=== PATIENT | male | born 1955 | race African-American/Black ===

== ENCOUNTER 2020-09-11 10:20 | Inpatient (IN) | payer MEDICARE, MEDICAID ==
[~2020-09-11] VITALS: Ht 165.1 cm; Wt 71.2 kg
[2020-09-11] MEDS ORDERED: SODIUM CHLORIDE 0.9% 1,000 ML IV ONE ×2 (10:45→12:15)
[2020-09-11 10:56] LABS: BASOPHILS % 0.6 % (0.0-2.0); EOSINOPHILS % 0.5 % (0.0-5.0); HEMATOCRIT. 39.1 % (42.0-52.0); HEMOGLOBIN. 12.9 g/dL (14.0-18.0); LYMPHOCYTES % 9.8 % (20.0-50.0); MEAN CORPUSCULAR HEMOGLOBIN 25.7 pg (28.0-32.0); MEAN CORPUSCULAR VOLUME 77.8 fL (80.0-94.0); MEAN PLATELET VOLUME 8.2 fl (7.4-10.4); MONOCYTES % 13.3 % (2.0-8.0); NEUTROPHILS % 75.8 % (40.0-76.0); PLATELET 349 x1000/uL (130-400); RED BLOOD CELL COUNT 5.02 mill/uL (4.7-6.1); RED CELL DISTRIBUTION WIDTH 13.7 % (11.6-14.6)
[2020-09-11 10:58] LABS: CLARITY URINE CLEAR (CLEAR); COLOR URINE YELLOW (YELLOW); KETONES URINE 1+ (NEGATIVE); LEUKOCYTE ESTERASE URINE NEGATIVE (NEGATIVE); NITRITE URINE NEGATIVE (NEGATIVE); OCCULT BLOOD URINE TRACE (NEGATIVE); PROTEIN URINE 1+ (NEGATIVE); SPECIFIC GRAVITY URINE 1.036 (1.005-1.030); UROBILINOGEN URINE 0.2 E.U./dL (0.2-1.0)
[2020-09-11 11:02] LABS: CHLORIDE 95 mEq/L (98-107)
[2020-09-11 11:06] LABS: ETHANOL BLOOD < 10 mg/dL; PROTHROMBIN TIME 10.7 sec (9.6-11.0)
[2020-09-11 11:25] LABS: *AMPHETAMINES SCREEN URINE NEGATIVE (NEGATIVE); *BARBITURATES SCREEN URINE NEGATIVE (NEGATIVE); *BENZODIAZEPINES SCREEN URINE NEGATIVE (NEGATIVE); OPIATES URINE SCREEN NEGATIVE (NEGATIVE)
[2020-09-11 11:27] LABS: *COCAINE SCREEN URINE NEGATIVE (NEGATIVE); CANNABINOID URINE SCREEN NEGATIVE (NEGATIVE); METHADONE URINE SCREEN NEGATIVE (NEGATIVE); PHENCYCLIDINE URINE SCREEN NEGATIVE (NEGATIVE)
[2020-09-11] MEDS ORDERED: INSULIN GLARGINE UD 100 UNITS/ML SYR SUBCUT SCH (13:00)
[2020-09-11] MEDS ORDERED: ONDANSETRON HCL 4MG/2ML INJ IV PRN (13:15)
[2020-09-11] MEDS ORDERED: IPRATROPIUM/ALBUTEROL 0.5-3(2.5)MG/3ML NEB HHN PRN (13:15)
[2020-09-11] MEDS ORDERED: CLONIDINE 0.1MG TABLET PO PRN (13:15)
[2020-09-11] MEDS ORDERED: ACETAMINOPHEN 325MG TABLET PO PRN (13:15)
[2020-09-11] MEDS ORDERED: DIPHENHYDRAMINE 50MG/ML VIAL IV PRN (13:15)
[2020-09-11] MEDS ORDERED: INSULIN REGULAR (HUMULIN R) 300UNITS/3ML VIAL SUBCUT ONE (14:45)
[2020-09-11 16:00] VITALS: BP 172/97
[2020-09-11 16:15] VITALS: BP 172/97
[2020-09-11] MEDS ORDERED: LISI20TA31 MT (17:38)
[2020-09-11] MEDS ORDERED: HYDR-4135 MT (17:38)
[2020-09-11] MEDS ORDERED: METF-414 MT (17:38)
[2020-09-11] MEDS ORDERED: MULT1TAB63 MT (17:38)
[2020-09-11] MEDS ORDERED: DEXTROSE 50% WATER 50ML SYRINGE IV PRN (18:15)
[2020-09-11] MEDS ORDERED: INFLUENZA VACCINE 05/PF 0.5 ML VIAL IM ONE (18:15)
[2020-09-11 20:00] VITALS: BP 137/66
[2020-09-11] MEDS: BLOOD SUGAR DIAGNOSTIC STRIP TEST SCH (21:06)
[2020-09-11] MEDS: INSULIN LISPRO 100 UNITS/ML SUBCUT SCH (21:06)
[2020-09-12] VITALS: BP 134/87
[2020-09-12] MEDS: INSULIN GLARGINE UD 100 UNITS/ML SYR SUBCUT SCH ×3 (00:49→23:46)
[2020-09-12 04:00] VITALS: BP 158/80
[2020-09-12] MEDS: BLOOD SUGAR DIAGNOSTIC STRIP TEST SCH ×4 (06:20→21:25)
[2020-09-12 06:53] LABS: HEMATOCRIT. 34.5 % (42.0-52.0); HEMOGLOBIN. 11.2 g/dL (14.0-18.0); MEAN CORPUSCULAR HEMOGLOBIN 25.1 pg (28.0-32.0); MEAN CORPUSCULAR VOLUME 77.4 fL (80.0-94.0); MEAN PLATELET VOLUME 8.7 fl (7.4-10.4); PLATELET 321 x1000/uL (130-400); RED BLOOD CELL COUNT 4.46 mill/uL (4.7-6.1); RED CELL DISTRIBUTION WIDTH 13.2 % (11.6-14.6)
[2020-09-12 07:52] LABS: CHLORIDE 101 mEq/L (98-107)
[2020-09-12 08:02] LABS: HDL CHOLESTEROL 53 mg/dL (40-59)
[2020-09-12 08:03] LABS: LDL CHOLESTEROL 140 mg/dL (5-100)
[2020-09-12] MEDS: INSULIN LISPRO 100 UNITS/ML SUBCUT SCH ×4 (08:11→21:28)
[2020-09-12] MEDS ORDERED: INFLUENZA VACCINE 05/PF 0.5 ML VIAL IM ONE (09:00)
[2020-09-12 12:00] VITALS: BP 145/68
[2020-09-12] MEDS ORDERED: POTASSIUM CHLORIDE 20MEQ TABLET SR PO SCH (12:00)
[2020-09-12 14:13] LABS: PLATELET ESTIMATE NORMAL
[2020-09-12 16:00] VITALS: BP 148/90
[2020-09-12] MEDS: CLOPIDOGREL 75MG TABLET PO SCH (17:11)
[2020-09-12 20:00] VITALS: BP 130/66
[2020-09-13] VITALS: BP 158/83
[2020-09-13 04:00] VITALS: BP 129/78
[2020-09-13 05:33] LABS: BASOPHILS % 0.6 % (0.0-2.0); EOSINOPHILS % 2.2 % (0.0-5.0); HEMATOCRIT. 33.4 % (42.0-52.0); HEMOGLOBIN. 10.8 g/dL (14.0-18.0); LYMPHOCYTES % 22.3 % (20.0-50.0); MEAN CORPUSCULAR HEMOGLOBIN 25.2 pg (28.0-32.0); MEAN CORPUSCULAR VOLUME 77.8 fL (80.0-94.0); MEAN PLATELET VOLUME 8.3 fl (7.4-10.4); MONOCYTES % 13.4 % (2.0-8.0); NEUTROPHILS % 61.5 % (40.0-76.0); PLATELET 325 x1000/uL (130-400); RED BLOOD CELL COUNT 4.29 mill/uL (4.7-6.1); RED CELL DISTRIBUTION WIDTH 13.2 % (11.6-14.6)
[2020-09-13] MEDS: BLOOD SUGAR DIAGNOSTIC STRIP TEST SCH ×4 (06:42→21:20)
[2020-09-13 07:07] LABS: CHLORIDE 100 mEq/L (98-107)
[2020-09-13 07:30] LABS: LDL CHOLESTEROL 131 mg/dL (5-100)
[2020-09-13 07:31] LABS: HDL CHOLESTEROL 49 mg/dL (40-59); T4 FREE 1.11 ng/dL (0.76-1.46)
[2020-09-13] MEDS: INSULIN LISPRO 100 UNITS/ML SUBCUT SCH ×4 (07:50→21:00)
[2020-09-13 08:00] VITALS: BP 145/81
[2020-09-13] MEDS: CLOPIDOGREL 75MG TABLET PO SCH (08:19)
[2020-09-13] MEDS: INSULIN GLARGINE UD 100 UNITS/ML SYR SUBCUT SCH ×2 (10:59→21:26)
[2020-09-13 12:00] VITALS: BP 155/85
[2020-09-13 16:00] VITALS: BP 125/94
[2020-09-13] MEDS ORDERED: POTASSIUM CHLORIDE 20MEQ TABLET SR PO SCH (17:00)
[2020-09-13 17:04] LABS: VITAMIN B12 SERUM 635 pg/mL (211-911)
[2020-09-13 17:07] LABS: FOLIC ACID (FOLATE) SERUM > 20.00 ng/mL (>5.38)
[2020-09-13] MEDS: SODIUM CHLORIDE 0.9% 1,000 ML IV SCH (17:28)
[2020-09-13 20:00] VITALS: BP 128/71
[2020-09-14] VITALS: BP 147/79
[2020-09-14 04:00] VITALS: BP 129/81
[2020-09-14] MEDS: SODIUM CHLORIDE 0.9% 1,000 ML IV SCH (05:34)
[2020-09-14] MEDS: BLOOD SUGAR DIAGNOSTIC STRIP TEST SCH ×3 (06:30→18:10)
[2020-09-14] MEDS: INSULIN LISPRO 100 UNITS/ML SUBCUT SCH ×4 (07:50→20:03)
[2020-09-14 08:00] VITALS: BP 168/93
[2020-09-14 08:11] LABS: CHLORIDE 102 mEq/L (98-107)
[2020-09-14 08:18] LABS: HEMATOCRIT. 35.7 % (42.0-52.0); HEMOGLOBIN. 11.8 g/dL (14.0-18.0); MEAN CORPUSCULAR HEMOGLOBIN 25.6 pg (28.0-32.0); MEAN CORPUSCULAR VOLUME 77.8 fL (80.0-94.0); PLATELET 343 x1000/uL (130-400); RED CELL DISTRIBUTION WIDTH 13.3 % (11.6-14.6)
[2020-09-14] MEDS: INSULIN GLARGINE UD 100 UNITS/ML SYR SUBCUT SCH (10:00)
[2020-09-14] MEDS: CLOPIDOGREL 75MG TABLET PO SCH (10:02)
[2020-09-14 11:53] VITALS: BP 148/80
[2020-09-14] MEDS ORDERED: BARIUM SULFATE 176 GM SUSP.RECON ONE (12:58)
[2020-09-14 15:54] VITALS: BP 139/71
[2020-09-14 21:40] LABS: PLATELET ESTIMATE NORMAL
== END 2020-09-14 19:50 | DRG 64 ==
LOC: ER 10:32 → 6EST 12:30 → EDBEDREQ 12:50 → EDBEDREQSVC 12:50 → ENRESERV 14:05
PROVIDERS: ADMIT Internal Medicine; ATTEND Internal Medicine
PROC: 0HBRXZZ Excision of Toe Nail, External Approach (ICD-10-PCS; principal; 2020-09-14)
PROC: 0HBRXZZ Excision of Toe Nail, External Approach (ICD-10-PCS; 2020-09-14)
PROC: 0HBRXZZ Excision of Toe Nail, External Approach (ICD-10-PCS; 2020-09-14)
PROC: 0HBRXZZ Excision of Toe Nail, External Approach (ICD-10-PCS; 2020-09-14)
PROC: 0HBRXZZ Excision of Toe Nail, External Approach (ICD-10-PCS; 2020-09-14)
PROC: 0HBRXZZ Excision of Toe Nail, External Approach (ICD-10-PCS; 2020-09-14)
PROC: 0HBRXZZ Excision of Toe Nail, External Approach (ICD-10-PCS; 2020-09-14)
PROC: 0HBRXZZ Excision of Toe Nail, External Approach (ICD-10-PCS; 2020-09-14)
PROC: 0HBRXZZ Excision of Toe Nail, External Approach (ICD-10-PCS; 2020-09-14)
PROC: 0HBRXZZ Excision of Toe Nail, External Approach (ICD-10-PCS; 2020-09-14)
DX: I63.81 Other cerebral infarction due to occlusion or stenosis of small artery (principal); G82.50 Quadriplegia, unspecified; E11.65 Type 2 diabetes mellitus with hyperglycemia; F03.90 Unspecified dementia, unspecified severity, without behavioral disturbance, psychotic disturbance, mood disturbance, and anxiety; I10 Essential (primary) hypertension; I25.10 Atherosclerotic heart disease of native coronary artery without angina pectoris; F17.210 Nicotine dependence, cigarettes, uncomplicated; E11.621 Type 2 diabetes mellitus with foot ulcer; E78.00 Pure hypercholesterolemia, unspecified; L60.2 Onychogryphosis; L85.3 Xerosis cutis; R53.81 Other malaise; L97.519 Non-pressure chronic ulcer of other part of right foot with unspecified severity; Z20.822 Contact with and (suspected) exposure to COVID-19; R13.10 Dysphagia, unspecified; E11.51 Type 2 diabetes mellitus with diabetic peripheral angiopathy without gangrene; R47.01 Aphasia; R26.9 Unspecified abnormalities of gait and mobility; I25.2 Old myocardial infarction; Z95.1 Presence of aortocoronary bypass graft; Z71.6 Tobacco abuse counseling; Z72.89 Other problems related to lifestyle
CPT/HCPCS: 36415; 70544; 70551; 71045; 74230; 80048; 80053; 80061; 80305; 80320; 81003; 82140; 82306; 82607; 82746; 82962; 83036; 84439; 84443; 84481; 84484; 85025; 87426; 90686; 92523; 92610; 92611; 93005; 93306; 93880; 93923; 93970; 97162; 97166; 97530; 97535; 99285; J1815; J7030; G0480

== ENCOUNTER 2020-10-03 10:43 | Inpatient (IN) | payer MEDICARE, MEDICAID ==
[~2020-10-03] VITALS: Ht 182.9 cm; Wt 64.4 kg
[~2020-10-03 10:43] MED LIST: AMLO10TA80 PO; ASCO500T20 PO; CLOP75TA15 PO; DOCU-150 PO; HYDR-4135 MT; HYDR-4135 PO; LANTUSUD SUBCUT; LISI20TA31 MT; METF-414 MT; MULT1TAB63 MT; TIZA-191 PO
[2020-10-03 12:00] LABS: BASOPHILS % 0.8 % (0.0-2.0); EOSINOPHILS % 1.4 % (0.0-5.0); HEMATOCRIT. 28.9 % (42.0-52.0); HEMOGLOBIN. 9.8 g/dL (14.0-18.0); LYMPHOCYTES % 14.1 % (20.0-50.0); MEAN CORPUSCULAR HEMOGLOBIN 25.4 pg (28.0-32.0); MEAN CORPUSCULAR VOLUME 74.9 fL (80.0-94.0); MEAN PLATELET VOLUME 6.7 fl (7.4-10.4); MONOCYTES % 13.2 % (2.0-8.0); NEUTROPHILS % 70.5 % (40.0-76.0); PLATELET 610 x1000/uL (130-400); RED BLOOD CELL COUNT 3.86 mill/uL (4.7-6.1); RED CELL DISTRIBUTION WIDTH 13.4 % (11.6-14.6)
[2020-10-03] MEDS ORDERED: SODIUM CHLORIDE 0.9% 1,000 ML IV SCH (12:00)
[2020-10-03 12:07] LABS: PARTIAL THROMBOPLASTIN TIME 26.9 sec (23.4-31.0)
[2020-10-03 12:10] LABS: CHLORIDE 102 mEq/L (98-107)
[2020-10-03] MEDS ORDERED: GENTAMICIN SULF 40MG/ML 2ML VIAL ONE (12:22)
[2020-10-03] MEDS ORDERED: BACITRACIN 15GM TUBE TOP ONE (12:22)
[2020-10-03] MEDS ORDERED: LIDOCAINE HCL 1% 20ML VIAL (Pyxis) INJ ONE (12:23)
[2020-10-03] MEDS ORDERED: SODIUM CHLORIDE 0.9% INJ 10ML FLUSH IVF ONE (12:23)
[2020-10-03] MEDS ORDERED: HEPARIN SODIUM 1,000 UNIT/1ML VIAL IV ONE (12:23)
[2020-10-03] MEDS ORDERED: THROMBIN (BOVINE) 5000 UNITS/VIAL TOP ONE (12:23)
[2020-10-03] MEDS ORDERED: BUPIVACAINE HCL/PF 0.5% (5MG/ML) 10ML ONE (12:23)
[2020-10-03] MEDS ORDERED: SODIUM CHLORIDE 0.9% 250 ML IV ONE (12:24)
[2020-10-03] MEDS ORDERED: HYDROCODONE/ACETAMINOPHEN 5/325MG TABLET PO PRN (13:30)
[2020-10-03] MEDS ORDERED: MORPHINE SULFATE 4 MG/ML CPJ (NOT FOR IM USE) IV PRN (13:30)
[2020-10-03] MEDS ORDERED: HYDROMORPHONE HCL/PF 2MG/ML (OR) ONE (13:46)
[2020-10-03] MEDS ORDERED: VASOPRESSIN 20 UNIT/ML 1ML ONE (13:54)
[2020-10-03] MEDS ORDERED: DEXAMETHASONE 4MG/ML 1ML VIAL ONE (13:54)
[2020-10-03] MEDS ORDERED: CEFAZOLIN SODIUM 1000MG/VIAL ONE (13:58)
[2020-10-03] MEDS ORDERED: CHOL500051 PO (14:06)
[2020-10-03] MEDS ORDERED: ALBUMIN HUMAN 12.5GM/50ML (25%) IV ONE (14:33)
[2020-10-03] MEDS ORDERED: MEPERIDINE HCL/PF 25MG/ML CPJ IV PRN (15:00)
[2020-10-03] MEDS ORDERED: LABETALOL 5MG/ML SYR 20 MG/4 ML SYRINGE IV PRN (15:00)
[2020-10-03] MEDS ORDERED: ONDANSETRON HCL 4MG/2ML INJ IV PRN (15:00)
[2020-10-03] MEDS ORDERED: HYDROMORPHONE HCL/PF 2MG/ML CPJ IV PRN (15:00)
[2020-10-03 20:00] VITALS: BP_SYST 129; BP_SYST 149; BP_DIAS 67; BP_DIAS 76
[2020-10-03] MEDS: HYDRALAZINE HCL 50MG TABLET PO SCH (21:00)
[2020-10-04 04:00] VITALS: BP 112/66
[2020-10-04 08:00] VITALS: BP 119/62
[2020-10-04] MEDS: HYDRALAZINE HCL 50MG TABLET PO SCH ×2 (09:57→21:45)
[2020-10-04 12:00] VITALS: BP 97/47
[2020-10-04 16:00] VITALS: BP 114/60
[2020-10-04 20:00] VITALS: BP 117/61
[2020-10-04] MEDS ORDERED: DEXTROSE 50% WATER 50ML SYRINGE IV PRN (22:15)
[2020-10-05] VITALS: BP 127/61
[2020-10-05] MEDS: BLOOD SUGAR DIAGNOSTIC STRIP TEST SCH ×4 (06:38→21:26)
[2020-10-05] MEDS: INSULIN LISPRO 100 UNITS/ML SUBCUT SCH ×4 (07:50→21:29)
[2020-10-05 07:56] VITALS: BP 118/58
[2020-10-05] MEDS: HYDRALAZINE HCL 50MG TABLET PO SCH ×2 (09:03→21:00)
[2020-10-05 11:12] VITALS: BP 114/64
[2020-10-05 15:43] VITALS: BP 124/66
[2020-10-05 20:00] VITALS: BP 102/74
[2020-10-06] VITALS (7 sets, daily range): BP systolic 122–134; BP diastolic 67–93
[2020-10-06 06:25] LABS: CHLORIDE 97 mEq/L (98-107)
[2020-10-06 06:39] LABS: BASOPHILS % 0.6 % (0.0-2.0); EOSINOPHILS % 2.8 % (0.0-5.0); HEMATOCRIT. 27.6 % (42.0-52.0); HEMOGLOBIN. 9.2 g/dL (14.0-18.0); LYMPHOCYTES % 16.2 % (20.0-50.0); MEAN CORPUSCULAR HEMOGLOBIN 24.8 pg (28.0-32.0); MEAN CORPUSCULAR VOLUME 74.4 fL (80.0-94.0); MEAN PLATELET VOLUME 7.1 fl (7.4-10.4); MONOCYTES % 14.2 % (2.0-8.0); NEUTROPHILS % 66.2 % (40.0-76.0); PLATELET 563 x1000/uL (130-400); RED CELL DISTRIBUTION WIDTH 13.5 % (11.6-14.6)
[2020-10-06] MEDS: BLOOD SUGAR DIAGNOSTIC STRIP TEST SCH ×4 (06:58→20:44)
[2020-10-06] MEDS: INSULIN LISPRO 100 UNITS/ML SUBCUT SCH ×4 (08:54→20:44)
[2020-10-06] MEDS: HYDRALAZINE HCL 50MG TABLET PO SCH ×2 (08:58→20:44)
[2020-10-07] VITALS (8 sets, daily range): BP systolic 106–140; BP diastolic 68–80
[2020-10-07] MEDS: BLOOD SUGAR DIAGNOSTIC STRIP TEST SCH ×4 (06:22→20:21)
[2020-10-07] MEDS: HYDRALAZINE HCL 50MG TABLET PO SCH ×2 (09:39→20:41)
[2020-10-07] MEDS: INSULIN LISPRO 100 UNITS/ML SUBCUT SCH ×4 (09:40→20:42)
[2020-10-08 00:30] VITALS: BP_SYST 127; BP_SYST 129; BP_DIAS 101; BP_DIAS 75
[2020-10-08 04:30] VITALS: BP 133/72
[2020-10-08 05:48] LABS: CHLORIDE 98 mEq/L (98-107)
[2020-10-08] MEDS: BLOOD SUGAR DIAGNOSTIC STRIP TEST SCH ×4 (06:50→21:01)
[2020-10-08 06:56] LABS: BASOPHILS % 0.9 % (0.0-2.0); EOSINOPHILS % 3.8 % (0.0-5.0); HEMATOCRIT. 28.7 % (42.0-52.0); HEMOGLOBIN. 9.4 g/dL (14.0-18.0); LYMPHOCYTES % 18.7 % (20.0-50.0); MEAN CORPUSCULAR HEMOGLOBIN 24.2 pg (28.0-32.0); MEAN CORPUSCULAR VOLUME 74.1 fL (80.0-94.0); MEAN PLATELET VOLUME 7.4 fl (7.4-10.4); MONOCYTES % 14.2 % (2.0-8.0); NEUTROPHILS % 62.4 % (40.0-76.0); PLATELET 660 x1000/uL (130-400); RED BLOOD CELL COUNT 3.87 mill/uL (4.7-6.1); RED CELL DISTRIBUTION WIDTH 13.8 % (11.6-14.6)
[2020-10-08 08:06] VITALS: BP 125/76
[2020-10-08] MEDS: HYDRALAZINE HCL 50MG TABLET PO SCH ×2 (11:11→21:01)
[2020-10-08 12:33] VITALS: BP 119/71
[2020-10-08] MEDS: INSULIN LISPRO 100 UNITS/ML SUBCUT SCH ×3 (13:21→21:01)
[2020-10-08 16:22] VITALS: BP 139/68
[2020-10-08 20:30] VITALS: BP 142/75
[2020-10-09 00:08] VITALS: BP 123/64
[2020-10-09 04:05] VITALS: BP 123/66
[2020-10-09] MEDS: BLOOD SUGAR DIAGNOSTIC STRIP TEST SCH ×4 (06:30→21:00)
[2020-10-09 07:56] LABS: CHLORIDE 98 mEq/L (98-107); HEMATOCRIT. 27.9 % (42.0-52.0); HEMOGLOBIN. 9.5 g/dL (14.0-18.0); MEAN CORPUSCULAR HEMOGLOBIN 25.2 pg (28.0-32.0); MEAN CORPUSCULAR VOLUME 73.9 fL (80.0-94.0); MEAN PLATELET VOLUME 7.3 fl (7.4-10.4); PLATELET 611 x1000/uL (130-400); RED BLOOD CELL COUNT 3.77 mill/uL (4.7-6.1); RED CELL DISTRIBUTION WIDTH 13.5 % (11.6-14.6)
[2020-10-09 08:00] VITALS: BP 140/74
[2020-10-09] MEDS: HYDRALAZINE HCL 50MG TABLET PO SCH ×2 (08:15→21:16)
[2020-10-09] MEDS: INSULIN LISPRO 100 UNITS/ML SUBCUT SCH ×4 (08:16→21:18)
[2020-10-09 11:57] VITALS: BP 158/76
[2020-10-09 16:29] VITALS: BP 129/73
[2020-10-09 17:23] LABS: PLATELET ESTIMATE INCREASED
[2020-10-09 20:00] VITALS: BP 145/63
[2020-10-10] VITALS: BP 149/83
[2020-10-10 04:00] VITALS: BP 127/66
[2020-10-10] MEDS: BLOOD SUGAR DIAGNOSTIC STRIP TEST SCH ×4 (06:23→21:14)
[2020-10-10 06:43] LABS: BASOPHILS % 0.9 % (0.0-2.0); EOSINOPHILS % 1.8 % (0.0-5.0); HEMOGLOBIN. 9.8 g/dL (14.0-18.0); LYMPHOCYTES % 18.7 % (20.0-50.0); MEAN CORPUSCULAR VOLUME 73.4 fL (80.0-94.0); MEAN PLATELET VOLUME 7.4 fl (7.4-10.4); MONOCYTES % 12.9 % (2.0-8.0); NEUTROPHILS % 65.7 % (40.0-76.0); PLATELET 723 x1000/uL (130-400); RED BLOOD CELL COUNT 4.09 mill/uL (4.7-6.1); RED CELL DISTRIBUTION WIDTH 13.6 % (11.6-14.6)
[2020-10-10 07:28] LABS: CHLORIDE 96 mEq/L (98-107)
[2020-10-10 08:00] VITALS: BP 151/78
[2020-10-10] MEDS: HYDRALAZINE HCL 50MG TABLET PO SCH ×2 (08:36→21:02)
[2020-10-10] MEDS: INSULIN LISPRO 100 UNITS/ML SUBCUT SCH ×4 (08:38→21:14)
[2020-10-10 12:00] VITALS: BP 138/78
[2020-10-10 16:00] VITALS: BP 130/79
[2020-10-10 20:00] VITALS: BP 155/88
[2020-10-11] VITALS: BP 127/69
[2020-10-11 04:00] VITALS: BP 125/85
[2020-10-11 06:01] LABS: EOSINOPHILS % 1.6 % (0.0-5.0); HEMATOCRIT. 30.4 % (42.0-52.0); HEMOGLOBIN. 10.1 g/dL (14.0-18.0); LYMPHOCYTES % 19.4 % (20.0-50.0); MEAN CORPUSCULAR HEMOGLOBIN 24.8 pg (28.0-32.0); MEAN CORPUSCULAR VOLUME 74.2 fL (80.0-94.0); MEAN PLATELET VOLUME 7.5 fl (7.4-10.4); MONOCYTES % 13.3 % (2.0-8.0); NEUTROPHILS % 64.7 % (40.0-76.0); PLATELET 681 x1000/uL (130-400); RED CELL DISTRIBUTION WIDTH 13.8 % (11.6-14.6)
[2020-10-11] MEDS: BLOOD SUGAR DIAGNOSTIC STRIP TEST SCH ×4 (06:17→21:48)
[2020-10-11 06:32] LABS: CHLORIDE 96 mEq/L (98-107)
[2020-10-11 08:00] VITALS: BP 145/94
[2020-10-11] MEDS: INSULIN LISPRO 100 UNITS/ML SUBCUT SCH ×4 (09:07→21:47)
[2020-10-11] MEDS: HYDRALAZINE HCL 50MG TABLET PO SCH ×2 (09:07→21:48)
[2020-10-11 12:00] VITALS: BP 121/69
[2020-10-11 16:00] VITALS: BP 112/69
[2020-10-11 20:00] VITALS: BP 137/71
[2020-10-12] VITALS (8 sets, daily range): BP systolic 130–152; BP diastolic 65–92
[2020-10-12 05:18] LABS: CHLORIDE 96 mEq/L (98-107)
[2020-10-12 06:21] LABS: BASOPHILS % 0.9 % (0.0-2.0); EOSINOPHILS % 2.1 % (0.0-5.0); HEMATOCRIT. 29.9 % (42.0-52.0); HEMOGLOBIN. 9.6 g/dL (14.0-18.0); LYMPHOCYTES % 20.5 % (20.0-50.0); MEAN CORPUSCULAR HEMOGLOBIN 23.8 pg (28.0-32.0); MEAN CORPUSCULAR VOLUME 73.9 fL (80.0-94.0); MEAN PLATELET VOLUME 7.4 fl (7.4-10.4); MONOCYTES % 12.9 % (2.0-8.0); NEUTROPHILS % 63.6 % (40.0-76.0); PLATELET 660 x1000/uL (130-400); RED BLOOD CELL COUNT 4.04 mill/uL (4.7-6.1); RED CELL DISTRIBUTION WIDTH 14.1 % (11.6-14.6)
[2020-10-12] MEDS: BLOOD SUGAR DIAGNOSTIC STRIP TEST SCH ×4 (06:21→21:00)
[2020-10-12] MEDS: HYDRALAZINE HCL 50MG TABLET PO SCH ×2 (08:34→22:44)
[2020-10-12] MEDS: INSULIN LISPRO 100 UNITS/ML SUBCUT SCH ×4 (08:35→21:00)
[2020-10-12] MEDS ORDERED: VANCOMYCIN HCL 1 GM/VIAL ONE (16:38)
[2020-10-12] MEDS ORDERED: FENTANYL CITRATE/PF 50MCG/ML 2ML VIAL ONE (19:24)
[2020-10-12] MEDS ORDERED: MIDAZOLAM HCL 2 MG/2 ML VIAL ONE (19:25)
[2020-10-12] MEDS ORDERED: PHENYLEPHRINE HCL 10 MG/ML 1ML (IV VIAL) IV ONE (19:25)
[2020-10-12] MEDS ORDERED: PROPOFOL 200MG/20ML VIAL IV ONE (19:25)
[2020-10-12] MEDS ORDERED: ROCURONIUM BROMIDE 10MG/ML VIAL 5ML IV ONE (19:26)
[2020-10-12] MEDS ORDERED: SUCCINYLCHOLINE CHLORIDE 200MG/10ML IV ONE (19:37)
[2020-10-12] MEDS ORDERED: CEFAZOLIN SODIUM 1000MG/VIAL ONE (19:44)
[2020-10-12] MEDS ORDERED: GENTAMICIN SULF 40MG/ML 2ML VIAL ONE ×2 (20:04→22:14)
[2020-10-12] MEDS ORDERED: BUPIVACAINE HCL 0.5% (5MG/ML) 50ML ONE (20:15)
[2020-10-12] MEDS ORDERED: ESMOLOL HCL 10MG/ML 10ML VIAL IV ONE (20:16)
[2020-10-12] MEDS ORDERED: HYDRALAZINE 20MG/ML VIAL ONE (20:17)
[2020-10-12] MEDS ORDERED: GLYCOPYRROLATE 0.2 MG/ML 2ML VIAL ONE (20:22)
[2020-10-12] MEDS ORDERED: NEOSTIGMINE METHYLSULFATE 1MG/ML 10 ML VIAL ONE (20:22)
[2020-10-12] MEDS ORDERED: ONDANSETRON HCL 4MG/2ML INJ ONE (20:50)
[2020-10-12] MEDS ORDERED: METOCLOPRAMIDE HCL 10MG/2ML VIAL ONE (20:50)
[2020-10-12] MEDS ORDERED: HYDROMORPHONE HCL/PF 2MG/ML CPJ IV PRN (21:08)
[2020-10-13] VITALS (8 sets, daily range): BP systolic 110–186; BP diastolic 61–96
[2020-10-13] MEDS: CEFAZOLIN 1000MG PREMIX 50 ML IV SCH ×3 (03:09→20:50)
[2020-10-13] MEDS: HYDROMORPHONE HCL/PF 2MG/ML CPJ IV PRN ×2 (03:43→08:38)
[2020-10-13 06:25] LABS: BASOPHILS % 0.8 % (0.0-2.0); EOSINOPHILS % 1.1 % (0.0-5.0); HEMATOCRIT. 29.8 % (42.0-52.0); HEMOGLOBIN. 9.5 g/dL (14.0-18.0); LYMPHOCYTES % 9.6 % (20.0-50.0); MEAN CORPUSCULAR HEMOGLOBIN 23.4 pg (28.0-32.0); MEAN CORPUSCULAR VOLUME 73.3 fL (80.0-94.0); MEAN PLATELET VOLUME 7.4 fl (7.4-10.4); MONOCYTES % 12.6 % (2.0-8.0); NEUTROPHILS % 75.9 % (40.0-76.0); PLATELET 685 x1000/uL (130-400); RED BLOOD CELL COUNT 4.07 mill/uL (4.7-6.1); RED CELL DISTRIBUTION WIDTH 13.8 % (11.6-14.6)
[2020-10-13 06:41] LABS: CHLORIDE 98 mEq/L (98-107)
[2020-10-13] MEDS: BLOOD SUGAR DIAGNOSTIC STRIP TEST SCH ×4 (07:13→20:50)
[2020-10-13] MEDS: INSULIN LISPRO 100 UNITS/ML SUBCUT SCH ×4 (08:28→20:50)
[2020-10-13] MEDS: HYDRALAZINE HCL 50MG TABLET PO SCH ×2 (08:29→20:50)
[2020-10-13] MEDS: ACETAMINOPHEN 325MG TABLET PO PRN (20:49)
[2020-10-14] VITALS: BP 136/78
[2020-10-14] MEDS: HYDROMORPHONE HCL/PF 2MG/ML CPJ IV PRN ×2 (02:04→08:09)
[2020-10-14 04:00] VITALS: BP 102/81
[2020-10-14 06:40] LABS: HEMATOCRIT. 27.6 % (42.0-52.0); HEMOGLOBIN. 8.9 g/dL (14.0-18.0); MEAN CORPUSCULAR HEMOGLOBIN 23.6 pg (28.0-32.0); MEAN CORPUSCULAR VOLUME 72.8 fL (80.0-94.0); MEAN PLATELET VOLUME 7.4 fl (7.4-10.4); PLATELET 593 x1000/uL (130-400); RED BLOOD CELL COUNT 3.79 mill/uL (4.7-6.1); RED CELL DISTRIBUTION WIDTH 14.2 % (11.6-14.6)
[2020-10-14] MEDS: ACETAMINOPHEN 325MG TABLET PO PRN (06:47)
[2020-10-14] MEDS: BLOOD SUGAR DIAGNOSTIC STRIP TEST SCH ×4 (06:47→21:17)
[2020-10-14 07:12] LABS: CHLORIDE 95 mEq/L (98-107)
[2020-10-14 07:58] VITALS: BP 124/74
[2020-10-14] MEDS: INSULIN LISPRO 100 UNITS/ML SUBCUT SCH ×4 (08:07→21:16)
[2020-10-14] MEDS: HYDRALAZINE HCL 50MG TABLET PO SCH ×2 (08:18→21:16)
[2020-10-14 11:44] VITALS: BP 156/92
[2020-10-14 16:07] VITALS: BP 117/95
[2020-10-14 20:00] VITALS: BP 136/76
[2020-10-15] VITALS: BP 127/84
[2020-10-15 04:00] VITALS: BP 114/76
[2020-10-15] MEDS: HYDROMORPHONE HCL/PF 2MG/ML CPJ IV PRN (06:09)
[2020-10-15 06:55] LABS: BASOPHILS % 0.5 % (0.0-2.0); EOSINOPHILS % 0.8 % (0.0-5.0); HEMATOCRIT. 26.3 % (42.0-52.0); HEMOGLOBIN. 8.7 g/dL (14.0-18.0); LYMPHOCYTES % 12.5 % (20.0-50.0); MEAN CORPUSCULAR VOLUME 72.3 fL (80.0-94.0); MEAN PLATELET VOLUME 7.5 fl (7.4-10.4); MONOCYTES % 13.1 % (2.0-8.0); NEUTROPHILS % 73.1 % (40.0-76.0); PLATELET 584 x1000/uL (130-400); RED BLOOD CELL COUNT 3.64 mill/uL (4.7-6.1); RED CELL DISTRIBUTION WIDTH 13.9 % (11.6-14.6)
[2020-10-15] MEDS: BLOOD SUGAR DIAGNOSTIC STRIP TEST SCH ×4 (06:55→20:43)
[2020-10-15 07:13] LABS: CHLORIDE 95 mEq/L (98-107)
[2020-10-15 08:30] VITALS: BP 134/83
[2020-10-15] MEDS: HYDRALAZINE HCL 50MG TABLET PO SCH ×2 (09:01→20:43)
[2020-10-15] MEDS: INSULIN LISPRO 100 UNITS/ML SUBCUT SCH ×5 (09:02→20:52)
[2020-10-15] MEDS: ACETAMINOPHEN 325MG TABLET PO PRN (09:31)
[2020-10-15 10:06] LABS: PLATELET ESTIMATE INCREASED
[2020-10-15 12:00] VITALS: BP 124/77
[2020-10-15] MEDS: HYDROCODONE/ACETAMINOPHEN 5/325MG TABLET PO PRN (13:46)
[2020-10-15] MEDS: CLOPIDOGREL 75MG TABLET PO SCH (15:44)
[2020-10-15] MEDS: POLYETHYLENE GLYCOL 3350 (17GM) 1 DOSE PACK PO SCH (15:44)
[2020-10-15 16:00] VITALS: BP 130/80
[2020-10-15 20:38] VITALS: BP 117/61
[2020-10-15] MEDS: ATORVASTATIN CALCIUM 20MG TABLET PO SCH ×2 (20:43→20:52)
[2020-10-16 00:37] VITALS: BP 119/71
[2020-10-16 04:00] VITALS: BP 119/72
[2020-10-16 06:52] LABS: CHLORIDE 97 mEq/L (98-107)
[2020-10-16 06:56] LABS: BASOPHILS % 0.6 % (0.0-2.0); EOSINOPHILS % 1.9 % (0.0-5.0); HEMATOCRIT. 25.2 % (42.0-52.0); HEMOGLOBIN. 8.5 g/dL (14.0-18.0); LYMPHOCYTES % 14.5 % (20.0-50.0); MEAN CORPUSCULAR HEMOGLOBIN 24.2 pg (28.0-32.0); MEAN CORPUSCULAR VOLUME 72.1 fL (80.0-94.0); MEAN PLATELET VOLUME 7.4 fl (7.4-10.4); PLATELET 594 x1000/uL (130-400); RED BLOOD CELL COUNT 3.49 mill/uL (4.7-6.1); RED CELL DISTRIBUTION WIDTH 13.7 % (11.6-14.6)
[2020-10-16] MEDS: BLOOD SUGAR DIAGNOSTIC STRIP TEST SCH ×4 (07:43→20:57)
[2020-10-16 08:00] VITALS: BP 123/81
[2020-10-16] MEDS: HYDROCODONE/ACETAMINOPHEN 5/325MG TABLET PO PRN ×2 (08:37→21:17)
[2020-10-16] MEDS: CLOPIDOGREL 75MG TABLET PO SCH (09:06)
[2020-10-16] MEDS: HYDRALAZINE HCL 50MG TABLET PO SCH ×2 (09:07→20:57)
[2020-10-16] MEDS: MULTIVITAMINS,THER W-MINERALS TABLET PO SCH (09:07)
[2020-10-16] MEDS: INSULIN LISPRO 100 UNITS/ML SUBCUT SCH ×4 (09:09→21:16)
[2020-10-16] MEDS: POLYETHYLENE GLYCOL 3350 (17GM) 1 DOSE PACK PO SCH (10:01)
[2020-10-16 12:00] VITALS: BP 127/78
[2020-10-16 16:10] VITALS: BP 119/75
[2020-10-16 20:00] VITALS: BP 142/72
[2020-10-16] MEDS: ATORVASTATIN CALCIUM 20MG TABLET PO SCH (20:56)
[2020-10-16 21:32] LABS: T4 FREE 1.4 ng/dL (0.76-1.46)
[2020-10-16 21:45] LABS: FOLIC ACID (FOLATE) SERUM 10.6 ng/mL (>5.38)
[2020-10-17] VITALS: BP 127/75
[2020-10-17 04:00] VITALS: BP 118/83
[2020-10-17] MEDS: HYDROCODONE/ACETAMINOPHEN 5/325MG TABLET PO PRN ×2 (04:13→15:24)
[2020-10-17] MEDS: BLOOD SUGAR DIAGNOSTIC STRIP TEST SCH ×3 (07:37→17:02)
[2020-10-17] MEDS: INSULIN LISPRO 100 UNITS/ML SUBCUT SCH ×3 (07:50→17:02)
[2020-10-17 08:00] VITALS: BP 149/94
[2020-10-17] MEDS: HYDRALAZINE HCL 50MG TABLET PO SCH (10:08)
[2020-10-17] MEDS: POLYETHYLENE GLYCOL 3350 (17GM) 1 DOSE PACK PO SCH (10:08)
[2020-10-17] MEDS: MULTIVITAMINS,THER W-MINERALS TABLET PO SCH (10:08)
[2020-10-17] MEDS: CLOPIDOGREL 75MG TABLET PO SCH (10:08)
[2020-10-17 12:00] VITALS: BP 124/79
[2020-10-17] MEDS ORDERED: CYANOCOBALAMIN 1000MCG/ML VIAL IM SCH (14:00)
[2020-10-17] MEDS ORDERED: ATOR20TA PO ×2 (14:55)
[2020-10-17 16:00] VITALS: BP 114/76
[2020-10-17 17:41] VITALS: BP 114/76
[2020-11-05] MEDS ORDERED: ZINC220T4 PO (00:44)
[2020-11-05] MEDS ORDERED: INSU100V3 SUBCUT (00:49)
[2020-11-05] MEDS ORDERED: SENN-257 MT (00:49)
[2020-11-05] MEDS ORDERED: CLON0.1T MT (00:49)
[2020-11-05] MEDS ORDERED: HJ10 SUBCUT (00:49)
[2020-11-05] MEDS ORDERED: HYDR-4346 MT (00:49)
[2020-11-05] MEDS ORDERED: FERR325T6 MT (00:49)
[2020-11-17] MEDS ORDERED: LOPJ5 IV ×2 (09:53)
[2020-11-17] MEDS ORDERED: PANT40TA51 MT (09:53)
[2020-11-17] MEDS ORDERED: ATOR20TA PO (09:53)
[2020-11-17] MEDS ORDERED: ASPI-1160 PO (09:53)
[2020-11-17] MEDS ORDERED: AMLO5TAB88 MT (09:53)
[2020-11-17] MEDS ORDERED: METO25TA6 PO (10:37)
== END 2020-10-17 18:45 | disposition home health service (06) | DRG 239 ==
LOC: OR 10:43 → 6WST 20:18
PROVIDERS: ADMIT Surgery Vascular Surgery; ATTEND Internal Medicine
PROC: 04CK0ZZ Extirpation of Matter from Right Femoral Artery, Open Approach (ICD-10-PCS; 2020-10-03)
PROC: 0Y6C0Z3 Detachment at Right Upper Leg, Low, Open Approach (ICD-10-PCS; principal; 2020-10-12)
DX: E11.52 Type 2 diabetes mellitus with diabetic peripheral angiopathy with gangrene (principal); G82.50 Quadriplegia, unspecified; I70.261 Atherosclerosis of native arteries of extremities with gangrene, right leg; I42.1 Obstructive hypertrophic cardiomyopathy; I69.351 Hemiplegia and hemiparesis following cerebral infarction affecting right dominant side; R47.01 Aphasia; R65.10 Systemic inflammatory response syndrome (SIRS) of non-infectious origin without acute organ dysfunction; G93.40 Encephalopathy, unspecified; I74.3 Embolism and thrombosis of arteries of the lower extremities; E11.65 Type 2 diabetes mellitus with hyperglycemia; L85.3 Xerosis cutis; D50.9 Iron deficiency anemia, unspecified; E11.621 Type 2 diabetes mellitus with foot ulcer; E55.9 Vitamin D deficiency, unspecified; E78.00 Pure hypercholesterolemia, unspecified; F03.90 Unspecified dementia, unspecified severity, without behavioral disturbance, psychotic disturbance, mood disturbance, and anxiety; I10 Essential (primary) hypertension; I25.10 Atherosclerotic heart disease of native coronary artery without angina pectoris; R13.10 Dysphagia, unspecified; Z72.0 Tobacco use; Z95.1 Presence of aortocoronary bypass graft; Z20.822 Contact with and (suspected) exposure to COVID-19; I25.2 Old myocardial infarction; L97.519 Non-pressure chronic ulcer of other part of right foot with unspecified severity; Z79.4 Long term (current) use of insulin; Z79.899 Other long term (current) drug therapy
CPT/HCPCS: 36415; 70551; 80048; 80053; 82140; 82607; 82746; 82962; 83036; 84145; 84439; 84443; 84481; 85025; 86850; 86900; 86920; 87426; 88304; 88307; 88311; 92523; 92610; 93005; 93922; 97110; 97162; 97164; 97166; 97168; 97530; 97535; A4565; C1884; J0330; J0360; J0690; J1100; J1170; J1580; J1644; J1815; J2250; J2270; J2370; J2405; J2704; J2710; J2765; J3010; J3370; J3420; J3490; J7030; J7040; J7050; P9047

== ENCOUNTER 2020-10-19 15:29 | Inpatient (IN) | payer MEDICARE, MEDICAID ==
[~2020-10-19] VITALS: Ht 175.3 cm; Wt 66.7 kg
[~2020-10-19 15:29] MED LIST changes: +ATOR20TA PO; +CHOL500051 PO; -HYDR-4135 MT; -HYDR-4135 PO; -LISI20TA31 MT; -METF-414 MT
[2020-10-19 16:20] LABS: BASOPHILS % 0.8 % (0.0-2.0); EOSINOPHILS % 1.7 % (0.0-5.0); HEMOGLOBIN. 8.5 g/dL (14.0-18.0); LYMPHOCYTES % 8.5 % (20.0-50.0); MEAN CORPUSCULAR HEMOGLOBIN 23.8 pg (28.0-32.0); MEAN CORPUSCULAR VOLUME 72.4 fL (80.0-94.0); MEAN PLATELET VOLUME 7.1 fl (7.4-10.4); MONOCYTES % 10.2 % (2.0-8.0); NEUTROPHILS % 78.8 % (40.0-76.0); PLATELET 751 x1000/uL (130-400); RED BLOOD CELL COUNT 3.59 mill/uL (4.7-6.1)
[2020-10-19 16:23] LABS: CHLORIDE 100 mEq/L (98-107)
[2020-10-19 16:29] LABS: PROTHROMBIN TIME 10.9 sec (9.6-11.0)
[2020-10-19 16:31] LABS: ETHANOL BLOOD < 10 mg/dL
[2020-10-19 17:32] LABS: CLARITY URINE CLOUDY (CLEAR); COLOR URINE DARK YELLOW (YELLOW); KETONES URINE TRACE (NEGATIVE); LEUKOCYTE ESTERASE URINE TRACE (NEGATIVE); NITRITE URINE NEGATIVE (NEGATIVE); OCCULT BLOOD URINE NEGATIVE (NEGATIVE); PROTEIN URINE 1+ (NEGATIVE); SPECIFIC GRAVITY URINE 1.023 (1.005-1.030)
[2020-10-19 18:52] LABS: *AMPHETAMINES SCREEN URINE NEGATIVE (NEGATIVE); *BARBITURATES SCREEN URINE NEGATIVE (NEGATIVE); *BENZODIAZEPINES SCREEN URINE NEGATIVE (NEGATIVE); *COCAINE SCREEN URINE NEGATIVE (NEGATIVE); CANNABINOID URINE SCREEN NEGATIVE (NEGATIVE); METHADONE URINE SCREEN NEGATIVE (NEGATIVE); OPIATES URINE SCREEN PRESUMTIVE POSITIVE (NEGATIVE); PHENCYCLIDINE URINE SCREEN NEGATIVE (NEGATIVE)
[2020-10-19] MEDS ORDERED: CEFTRIAXONE 1 G PREMIX 50 ML IV ONE (19:30)
[2020-10-19 23:45] VITALS: BP 160/85
[2020-10-19] MEDS ORDERED: CLONIDINE 0.1MG TABLET PO PRN (23:45)
[2020-10-19] MEDS ORDERED: IPRATROPIUM/ALBUTEROL 0.5-3(2.5)MG/3ML NEB NEB PRN (23:45)
[2020-10-19] MEDS ORDERED: GUAIFENESIN 200MG/10ML SUGAR FREE UDC PO PRN (23:45)
[2020-10-19] MEDS ORDERED: ACETAMINOPHEN 325MG TABLET PO PRN (23:45)
[2020-10-19] MEDS ORDERED: HYDROCODONE/ACETAMINOPHEN 5/325MG TABLET PO PRN (23:45)
[2020-10-19] MEDS ORDERED: DOCUSATE SODIUM 100MG CAPSULE PO PRN (23:45)
[2020-10-19] MEDS ORDERED: MAGNESIUM/ALUMINUM HYDROXIDE/SIMETHICONE 30ML UDC PO PRN (23:45)
[2020-10-19] MEDS ORDERED: ONDANSETRON HCL 4MG/2ML INJ IV PRN (23:45)
[2020-10-20] VITALS: BP 160/85
[2020-10-20] MEDS ORDERED: DEXTROSE 50% WATER 50ML SYRINGE IV PRN (00:30)
[2020-10-20] MEDS: SODIUM CHLORIDE 0.9% 1,000 ML IV SCH ×2 (02:13→12:41)
[2020-10-20] MEDS: CEFTRIAXONE 1,000 MG in DEXTROSE 5% WATER 50 ML IV SCH (02:13)
[2020-10-20 04:00] VITALS: BP 112/63
[2020-10-20] MEDS: BLOOD SUGAR DIAGNOSTIC STRIP TEST SCH ×4 (05:42→20:54)
[2020-10-20 07:07] LABS: BASOPHILS % 0.8 % (0.0-2.0); EOSINOPHILS % 3.9 % (0.0-5.0); HEMATOCRIT. 23.7 % (42.0-52.0); HEMOGLOBIN. 7.9 g/dL (14.0-18.0); LYMPHOCYTES % 17.7 % (20.0-50.0); MEAN CORPUSCULAR HEMOGLOBIN 24.1 pg (28.0-32.0); MEAN CORPUSCULAR VOLUME 72.5 fL (80.0-94.0); MEAN PLATELET VOLUME 7.3 fl (7.4-10.4); MONOCYTES % 9.8 % (2.0-8.0); NEUTROPHILS % 67.8 % (40.0-76.0); PLATELET 623 x1000/uL (130-400); RED BLOOD CELL COUNT 3.27 mill/uL (4.7-6.1); RED CELL DISTRIBUTION WIDTH 14.1 % (11.6-14.6)
[2020-10-20 07:12] LABS: CHLORIDE 104 mEq/L (98-107)
[2020-10-20] MEDS: INSULIN LISPRO 100 UNITS/ML SUBCUT SCH ×4 (07:15→21:05)
[2020-10-20 07:30] LABS: LDL CHOLESTEROL 75 mg/dL (5-100)
[2020-10-20 07:32] LABS: CREATINE KINASE 199 IU/L (39-308); HDL CHOLESTEROL 43 mg/dL (40-59)
[2020-10-20 07:34] LABS: CREATINE KINASE MB FRACTION < 1.0 ng/mL (0.5-3.6)
[2020-10-20 08:00] VITALS: BP 104/65
[2020-10-20] MEDS: ENOXAPARIN 40MG/0.4ML SYR SUBCUT SCH (09:00)
[2020-10-20 12:00] VITALS: BP 115/72
[2020-10-20 15:51] LABS: TOTAL IRON BINDING CAPACITY 189 ug/dL (250-450)
[2020-10-20 15:53] LABS: CREATINE KINASE 182 IU/L (39-308)
[2020-10-20 15:55] LABS: CREATINE KINASE MB FRACTION 1.1 ng/mL (0.5-3.6)
[2020-10-20 16:00] VITALS: BP 106/60
[2020-10-20 20:00] VITALS: BP 108/63
[2020-10-21] VITALS: BP 144/75
[2020-10-21] MEDS: CEFTRIAXONE 1,000 MG in DEXTROSE 5% WATER 50 ML IV SCH (00:35)
[2020-10-21] MEDS: SODIUM CHLORIDE 0.9% 1,000 ML IV SCH ×2 (00:35→15:06)
[2020-10-21 04:00] VITALS: BP 136/76
[2020-10-21] MEDS: BLOOD SUGAR DIAGNOSTIC STRIP TEST SCH ×4 (06:19→20:57)
[2020-10-21] MEDS: INSULIN LISPRO 100 UNITS/ML SUBCUT SCH ×4 (06:19→20:57)
[2020-10-21 08:00] VITALS: BP 120/95
[2020-10-21] MEDS: ENOXAPARIN 40MG/0.4ML SYR SUBCUT SCH (09:23)
[2020-10-21 10:28] LABS: BASOPHILS % 0.9 % (0.0-2.0); EOSINOPHILS % 3.9 % (0.0-5.0); HEMATOCRIT. 22.5 % (42.0-52.0); HEMOGLOBIN. 7.3 g/dL (14.0-18.0); LYMPHOCYTES % 20.4 % (20.0-50.0); MEAN CORPUSCULAR HEMOGLOBIN 23.7 pg (28.0-32.0); MEAN CORPUSCULAR VOLUME 72.5 fL (80.0-94.0); MEAN PLATELET VOLUME 6.9 fl (7.4-10.4); MONOCYTES % 10.4 % (2.0-8.0); NEUTROPHILS % 64.4 % (40.0-76.0); PLATELET 549 x1000/uL (130-400); RED CELL DISTRIBUTION WIDTH 14.2 % (11.6-14.6)
[2020-10-21 10:34] LABS: CHLORIDE 103 mEq/L (98-107)
[2020-10-21 12:00] VITALS: BP 120/69
[2020-10-21 16:00] VITALS: BP 112/70
[2020-10-21] MEDS: FERROUS SULFATE 325MG TABLET PO SCH (17:43)
[2020-10-21 20:00] VITALS: BP 139/63
[2020-10-22] VITALS (7 sets, daily range): BP systolic 135–161; BP diastolic 62–86
[2020-10-22] MEDS: CEFTRIAXONE 1,000 MG in DEXTROSE 5% WATER 50 ML IV SCH (00:48)
[2020-10-22] MEDS: SODIUM CHLORIDE 0.9% 1,000 ML IV SCH ×2 (04:11→17:34)
[2020-10-22 06:08] LABS: BASOPHILS % 0.9 % (0.0-2.0); EOSINOPHILS % 3.4 % (0.0-5.0); HEMATOCRIT. 23.9 % (42.0-52.0); HEMOGLOBIN. 7.8 g/dL (14.0-18.0); LYMPHOCYTES % 24.8 % (20.0-50.0); MEAN CORPUSCULAR HEMOGLOBIN 23.6 pg (28.0-32.0); MEAN CORPUSCULAR VOLUME 72.4 fL (80.0-94.0); MEAN PLATELET VOLUME 7.2 fl (7.4-10.4); MONOCYTES % 11.6 % (2.0-8.0); NEUTROPHILS % 59.3 % (40.0-76.0); PLATELET 586 x1000/uL (130-400); RED CELL DISTRIBUTION WIDTH 14.3 % (11.6-14.6)
[2020-10-22] MEDS: BLOOD SUGAR DIAGNOSTIC STRIP TEST SCH ×4 (06:23→21:38)
[2020-10-22] MEDS: INSULIN LISPRO 100 UNITS/ML SUBCUT SCH ×4 (06:23→21:00)
[2020-10-22 06:28] LABS: CHLORIDE 105 mEq/L (98-107)
[2020-10-22] MEDS: FERROUS SULFATE 325MG TABLET PO SCH ×3 (08:55→17:34)
[2020-10-22] MEDS: ENOXAPARIN 40MG/0.4ML SYR SUBCUT SCH (08:56)
== END 2020-10-22 22:48 | DRG 689 ==
LOC: ER 15:32 → 5WST 20:10 → EDBEDREQTM 20:12 → EDBEDREQ 20:12 → ENRESERV 21:45
PROVIDERS: ADMIT Internal Medicine; ATTEND Internal Medicine
DX: N39.0 Urinary tract infection, site not specified (principal); G93.41 Metabolic encephalopathy; E87.1 Hypo-osmolality and hyponatremia; E44.0 Moderate protein-calorie malnutrition; R53.1 Weakness; D50.9 Iron deficiency anemia, unspecified; I10 Essential (primary) hypertension; I25.10 Atherosclerotic heart disease of native coronary artery without angina pectoris; Z86.73 Personal history of transient ischemic attack (TIA), and cerebral infarction without residual deficits; Z95.1 Presence of aortocoronary bypass graft; Z20.822 Contact with and (suspected) exposure to COVID-19; Z89.612 Acquired absence of left leg above knee; E11.51 Type 2 diabetes mellitus with diabetic peripheral angiopathy without gangrene; E11.65 Type 2 diabetes mellitus with hyperglycemia; Z98.890 Other specified postprocedural states; Z68.21 Body mass index [BMI] 21.0-21.9, adult
CPT/HCPCS: 36415; 71045; 80048; 80053; 80061; 80305; 80307; 80320; 80329; 81003; 82270; 82550; 82553; 82728; 82962; 83036; 83540; 83550; 83735; 84443; 84484; 85025; 87426; 93005; 97162; 97166; 97530; 97535; 99291; J0696; J1650; J1815; J7030; J7060; G0480

== ENCOUNTER 2020-11-27 16:45 | Inpatient (IN) | payer MEDICARE, MEDICAID ==
[~2020-11-27] VITALS: Ht 175.3 cm; Wt 59.9 kg
[~2020-11-27 16:45] MED LIST changes: -AMLO10TA80 PO; +AMLO5TAB88 MT; +ASPI-1160 PO; -CHOL500051 PO; -CLOP75TA15 PO; +FERR325T6 MT; +HJ10 SUBCUT; +HYDR-4346 MT; -LANTUSUD SUBCUT; +METO25TA6 PO; -MULT1TAB63 MT; +PANT40TA51 MT; +SENN-257 MT; -TIZA-191 PO; +ZINC220T4 PO
[2020-11-27] MEDS ORDERED: CEFTRIAXONE 1 G PREMIX 50 ML IV ONE (17:30)
[2020-11-27] MEDS ORDERED: SODIUM CHLORIDE 0.9% 1000ML BAG (SEPSIS BOLUS) IV ONE (17:30)
[2020-11-27 17:36] LABS: HEMATOCRIT. 31.3 % (42.0-52.0); HEMOGLOBIN. 10.4 g/dL (14.0-18.0); MEAN CORPUSCULAR HEMOGLOBIN 23.1 pg (28.0-32.0); MEAN CORPUSCULAR VOLUME 69.1 fL (80.0-94.0); MEAN PLATELET VOLUME 7.9 fl (7.4-10.4); PLATELET 410 x1000/uL (130-400); RED BLOOD CELL COUNT 4.53 mill/uL (4.7-6.1); RED CELL DISTRIBUTION WIDTH 17.8 % (11.6-14.6)
[2020-11-27 17:40] LABS: CHLORIDE 96 mEq/L (98-107)
[2020-11-27 17:44] LABS: ETHANOL BLOOD < 10 mg/dL
[2020-11-27 17:44] LABS: CLARITY URINE CLOUDY (CLEAR); COLOR URINE YELLOW (YELLOW); KETONES URINE NEGATIVE (NEGATIVE); LEUKOCYTE ESTERASE URINE 3+ (NEGATIVE); NITRITE URINE POSITIVE (NEGATIVE); OCCULT BLOOD URINE NEGATIVE (NEGATIVE); PH URINE 6.5 (4.5-8.0); PROTEIN URINE NEGATIVE (NEGATIVE); SPECIFIC GRAVITY URINE 1.013 (1.005-1.030)
[2020-11-27 17:53] LABS: *AMPHETAMINES SCREEN URINE NEGATIVE (NEGATIVE)
[2020-11-27 17:54] LABS: *BARBITURATES SCREEN URINE NEGATIVE (NEGATIVE); *BENZODIAZEPINES SCREEN URINE NEGATIVE (NEGATIVE); *COCAINE SCREEN URINE NEGATIVE (NEGATIVE); METHADONE URINE SCREEN NEGATIVE (NEGATIVE); OPIATES URINE SCREEN NEGATIVE (NEGATIVE); PHENCYCLIDINE URINE SCREEN NEGATIVE (NEGATIVE)
[2020-11-27 17:55] LABS: CANNABINOID URINE SCREEN NEGATIVE (NEGATIVE)
[2020-11-27 18:00] LABS: BG BASE EXCESS 2.4 mmol/L (-2.0-2.0); BG CARBOXYHEMOGLOBIN 0.3 % (0.5-1.5); BG DEOXYHEMOGLOBIN 4.4 % (0.0-5.0); BG FRACTION INSPIRED OXYGEN 21; BG HCO3 ACT 25.9 mmol/L (22.0-26.0); BG METHEMOGLOBIN 0.3 % (0.0-1.5); BG OXYGEN SATURATION 95.6 % (92.0-98.5); BG PCO2 36.1 mmHg (35.0-45.0); BG PH 7.473 (7.350-7.450); BG PO2 78.6 mmHg (75.0-100.0); BG SAMPLE SITE RIGHT RADIAL; BG TOTAL HEMOGLOBIN 11.8 g/dL (12.0-18.0); BG VENT MODE ROOM AIR
[2020-11-27 18:25] LABS: PLATELET ESTIMATE INCREASED
[2020-11-28] VITALS (42 sets, daily range): BP systolic 65–179; BP diastolic 29–112
[2020-11-28] MEDS ORDERED: ACETAMINOPHEN 325MG TABLET PO PRN (01:00)
[2020-11-28] MEDS ORDERED: MAGNESIUM/ALUMINUM HYDROXIDE/SIMETHICONE 30ML UDC PO PRN (01:00)
[2020-11-28] MEDS ORDERED: CLONIDINE 0.1MG TABLET PO PRN (01:00)
[2020-11-28] MEDS ORDERED: HYDROCODONE/ACETAMINOPHEN 5/325MG TABLET PO PRN (01:00)
[2020-11-28] MEDS ORDERED: GUAIFENESIN 200MG/10ML SUGAR FREE UDC PO PRN (01:00)
[2020-11-28] MEDS ORDERED: CEFTRIAXONE 1 G PREMIX 50 ML IV SCH (01:00)
[2020-11-28] MEDS ORDERED: ONDANSETRON HCL 4MG/2ML INJ IV PRN (01:00)
[2020-11-28] MEDS ORDERED: IPRATROPIUM/ALBUTEROL 0.5-3(2.5)MG/3ML NEB NEB PRN (01:00)
[2020-11-28] MEDS ORDERED: DOCUSATE SODIUM 100MG CAPSULE PO PRN (01:00)
[2020-11-28 02:53] LABS: BG BASE EXCESS -1.8 mmol/L (-2.0-2.0); BG CARBOXYHEMOGLOBIN 0.3 % (0.5-1.5); BG DEOXYHEMOGLOBIN 0.3 % (0.0-5.0); BG FRACTION INSPIRED OXYGEN 100; BG HCO3 ACT 25.5 mmol/L (22.0-26.0); BG METHEMOGLOBIN 0.3 % (0.0-1.5); BG OXYGEN SATURATION 99.7 % (92.0-98.5); BG OXYHEMOGLOBIN 99.1 % (94.0-97.0); BG PCO2 55.2 mmHg (35.0-45.0); BG PH 7.283 (7.350-7.450); BG PO2 353.2 mmHg (75.0-100.0); BG SAMPLE SITE RIGHT RADIAL; BG TOTAL HEMOGLOBIN 12.1 g/dL (12.0-18.0); BG VENT MODE MASK - NRB
[2020-11-28] MEDS ORDERED: DEXTROSE 50% WATER 50ML SYRINGE IV PRN (03:00)
[2020-11-28 05:15] LABS: HEMATOCRIT. 35.8 % (42.0-52.0); HEMOGLOBIN. 11.4 g/dL (14.0-18.0); MEAN CORPUSCULAR HEMOGLOBIN 22.8 pg (28.0-32.0); MEAN CORPUSCULAR VOLUME 71.5 fL (80.0-94.0); MEAN PLATELET VOLUME 8.5 fl (7.4-10.4); PLATELET 418 x1000/uL (130-400); RED CELL DISTRIBUTION WIDTH 17.4 % (11.6-14.6)
[2020-11-28] MEDS: INSULIN LISPRO 100 UNITS/ML SUBCUT SCH ×4 (05:48→23:30)
[2020-11-28] MEDS: BLOOD SUGAR DIAGNOSTIC STRIP TEST SCH ×4 (05:48→23:27)
[2020-11-28] MEDS ORDERED: IPRATROPIUM/ALBUTEROL 0.5-3(2.5)MG/3ML NEB HHN SCH ×2 (06:00)
[2020-11-28 06:09] LABS: CHLORIDE 100 mEq/L (98-107)
[2020-11-28 06:18] LABS: LDL CHOLESTEROL 17 mg/dL (5-100)
[2020-11-28 06:19] LABS: CREATINE KINASE 31 IU/L (39-308); HDL CHOLESTEROL 8 mg/dL (40-59)
[2020-11-28 06:23] LABS: CREATINE KINASE MB FRACTION 2.4 ng/mL (0.5-3.6)
[2020-11-28] MEDS ORDERED: POTASSIUM CHLORIDE 20MEQ/PACKET PO SCH (07:00)
[2020-11-28] MEDS ORDERED: ACETAMINOPHEN 650MG/20.3ML UDC PO PRN (09:00)
[2020-11-28 09:02] LABS: BG BASE EXCESS 4.7 mmol/L (-2.0-2.0); BG CARBOXYHEMOGLOBIN 0.3 % (0.5-1.5); BG FRACTION INSPIRED OXYGEN 32; BG HCO3 ACT 27.8 mmol/L (22.0-26.0); BG METHEMOGLOBIN 0.2 % (0.0-1.5); BG OXYHEMOGLOBIN 97.5 % (94.0-97.0); BG PCO2 35.8 mmHg (35.0-45.0); BG PH 7.508 (7.350-7.450); BG PO2 102.4 mmHg (75.0-100.0); BG SAMPLE SITE RIGHT RADIAL; BG TOTAL HEMOGLOBIN 11.5 g/dL (12.0-18.0); BG VENT MODE NASAL CANNULA
[2020-11-28] MEDS: SODIUM CHLORIDE 0.9% 1,000 ML IV SCH ×2 (09:23→21:02)
[2020-11-28] MEDS: CEFEPIME 1,000 MG in DEXTROSE 5% WATER 50 ML IV SCH ×2 (09:31→21:00)
[2020-11-28] MEDS: IPRATROPIUM BROMIDE (0.02%) 0.5MG/2.5ML NEB HHN SCH ×3 (09:56→21:24)
[2020-11-28 09:59] LABS: PLATELET ESTIMATE INCREASED
[2020-11-28] MEDS ORDERED: VANCOMYCIN 1250MG in DEXTROSE 5% WATER 250ML IV NR (11:00)
[2020-11-28] MEDS ORDERED: AMLODIPINE 5MG TABLET PO SCH (12:45)
[2020-11-28 13:37] LABS: INR 1.2; PROTHROMBIN TIME 12.5 sec (9.6-11.0)
[2020-11-28 13:44] LABS: CHLORIDE 101 mEq/L (98-107)
[2020-11-28] MEDS: INSULIN GLARGINE UD 100 UNITS/ML SYR SUBCUT SCH (14:00)
[2020-11-28] MEDS ORDERED: IOHEXOL-300 100 ML BOTTLE ONE (14:50)
[2020-11-28] MEDS: ASCORBIC ACID 500 MG TABLET PO SCH (15:16)
[2020-11-28] MEDS: PANTOPRAZOLE 40MG DR TABLET PO SCH (15:16)
[2020-11-28] MEDS: ASPIRIN 81MG TABLET PO SCH (15:16)
[2020-11-28] MEDS: HEPARIN 5000 UNITS/ML VIAL SUBCUT SCH ×2 (15:17→21:01)
[2020-11-28] MEDS: METOPROLOL TARTRATE 25MG TABLET PO SCH ×2 (15:18→21:00)
[2020-11-28 17:53] LABS: CREATINE KINASE MB FRACTION 3.4 ng/mL (0.5-3.6)
[2020-11-28] MEDS ORDERED: CEFTRIAXONE 1,000 MG in DEXTROSE 5% WATER 50 ML IV SCH (18:00)
[2020-11-28] MEDS: LINEZOLID 600 MG PREMIX 300 ML IV SCH (18:07)
[2020-11-28] MEDS: ATORVASTATIN CALCIUM 20MG TABLET PO SCH (21:00)
[2020-11-29] VITALS (12 sets, daily range): BP systolic 104–141; BP diastolic 57–95
[2020-11-29] MEDS: IPRATROPIUM BROMIDE (0.02%) 0.5MG/2.5ML NEB HHN SCH ×4 (02:13→21:03)
[2020-11-29] MEDS ORDERED: VANCOMYCIN 1 G PREMIX 200 ML IV SCH ×2 (04:00→12:00)
[2020-11-29] MEDS: LINEZOLID 600 MG PREMIX 300 ML IV SCH ×2 (05:06→18:57)
[2020-11-29] MEDS: BLOOD SUGAR DIAGNOSTIC STRIP TEST SCH ×4 (05:07→23:20)
[2020-11-29] MEDS: INSULIN LISPRO 100 UNITS/ML SUBCUT SCH ×4 (05:20→23:21)
[2020-11-29 06:00] LABS: CHLORIDE 103 mEq/L (98-107)
[2020-11-29 06:17] LABS: PHOSPHORUS 2.6 mg/dL (2.5-4.9)
[2020-11-29 06:20] LABS: CREATINE KINASE 272 IU/L (39-308)
[2020-11-29 06:41] LABS: HEMATOCRIT. 28.5 % (42.0-52.0); HEMOGLOBIN. 9.2 g/dL (14.0-18.0); MEAN CORPUSCULAR HEMOGLOBIN 22.8 pg (28.0-32.0); MEAN CORPUSCULAR VOLUME 70.8 fL (80.0-94.0); MEAN PLATELET VOLUME 8.6 fl (7.4-10.4); PLATELET 348 x1000/uL (130-400); RED BLOOD CELL COUNT 4.03 mill/uL (4.7-6.1); RED CELL DISTRIBUTION WIDTH 17.1 % (11.6-14.6)
[2020-11-29 07:36] LABS: BG BASE EXCESS 1.2 mmol/L (-2.0-2.0); BG CARBOXYHEMOGLOBIN 0.3 % (0.5-1.5); BG DEOXYHEMOGLOBIN 2.1 % (0.0-5.0); BG FRACTION INSPIRED OXYGEN 28; BG HCO3 ACT 24.6 mmol/L (22.0-26.0); BG METHEMOGLOBIN 0.4 % (0.0-1.5); BG OXYGEN SATURATION 97.9 % (92.0-98.5); BG OXYHEMOGLOBIN 97.2 % (94.0-97.0); BG PCO2 33.8 mmHg (35.0-45.0); BG PH 7.479 (7.350-7.450); BG PO2 101.5 mmHg (75.0-100.0); BG SAMPLE SITE RIGHT RADIAL; BG TOTAL HEMOGLOBIN 9.3 g/dL (12.0-18.0); BG VENT MODE NASAL CANNULA
[2020-11-29] MEDS: METOPROLOL TARTRATE 25MG TABLET PO SCH ×2 (09:59→20:25)
[2020-11-29] MEDS: PANTOPRAZOLE 40MG DR TABLET PO SCH (10:00)
[2020-11-29] MEDS: CEFEPIME 1,000 MG in DEXTROSE 5% WATER 50 ML IV SCH ×2 (10:00→20:25)
[2020-11-29] MEDS: ASCORBIC ACID 500 MG TABLET PO SCH (10:00)
[2020-11-29] MEDS: SODIUM CHLORIDE 0.9% 1,000 ML IV SCH ×2 (10:00→21:59)
[2020-11-29] MEDS: HEPARIN 5000 UNITS/ML VIAL SUBCUT SCH ×2 (10:00→20:26)
[2020-11-29] MEDS: ASPIRIN 81MG TABLET PO SCH (10:00)
[2020-11-29] MEDS: INSULIN GLARGINE UD 100 UNITS/ML SYR SUBCUT SCH (10:02)
[2020-11-29 17:36] LABS: PLATELET ESTIMATE NORMAL
[2020-11-29] MEDS: ATORVASTATIN CALCIUM 20MG TABLET PO SCH (20:25)
[2020-11-30] VITALS (11 sets, daily range): BP systolic 120–150; BP diastolic 59–79
[2020-11-30] MEDS: BLOOD SUGAR DIAGNOSTIC STRIP TEST SCH ×3 (05:12→18:20)
[2020-11-30] MEDS: INSULIN LISPRO 100 UNITS/ML SUBCUT SCH ×3 (05:12→18:00)
[2020-11-30] MEDS: LINEZOLID 600 MG PREMIX 300 ML IV SCH (05:28)
[2020-11-30 05:53] LABS: CHLORIDE 103 mEq/L (98-107)
[2020-11-30 06:25] LABS: BASOPHILS % 0.6 % (0.0-2.0); EOSINOPHILS % 5.8 % (0.0-5.0); HEMATOCRIT. 29.4 % (42.0-52.0); HEMOGLOBIN. 9.3 g/dL (14.0-18.0); LYMPHOCYTES % 14.4 % (20.0-50.0); MEAN CORPUSCULAR HEMOGLOBIN 22.2 pg (28.0-32.0); MEAN CORPUSCULAR VOLUME 69.7 fL (80.0-94.0); MEAN PLATELET VOLUME 8.8 fl (7.4-10.4); MONOCYTES % 12.9 % (2.0-8.0); NEUTROPHILS % 66.3 % (40.0-76.0); PLATELET 411 x1000/uL (130-400); RED BLOOD CELL COUNT 4.21 mill/uL (4.7-6.1); RED CELL DISTRIBUTION WIDTH 17.3 % (11.6-14.6)
[2020-11-30] MEDS ORDERED: FAMOTIDINE 20MG TABLET PO SCH (09:00)
[2020-11-30] MEDS: IPRATROPIUM BROMIDE (0.02%) 0.5MG/2.5ML NEB HHN SCH ×3 (09:19→14:55)
[2020-11-30] MEDS: ASCORBIC ACID 500 MG TABLET PO SCH (09:22)
[2020-11-30] MEDS: ASPIRIN 81MG TABLET PO SCH (09:23)
[2020-11-30] MEDS: METOPROLOL TARTRATE 25MG TABLET PO SCH (09:23)
[2020-11-30] MEDS: CEFEPIME 1,000 MG in DEXTROSE 5% WATER 50 ML IV SCH (09:24)
[2020-11-30] MEDS: HEPARIN 5000 UNITS/ML VIAL SUBCUT SCH (09:27)
[2020-11-30] MEDS: INSULIN GLARGINE UD 100 UNITS/ML SYR SUBCUT SCH (09:29)
[2020-11-30] MEDS ORDERED: NITR100C MT (09:51)
[2020-11-30] MEDS ORDERED: AMOX1TAB16 PO (09:51)
[2020-11-30] MEDS ORDERED: DOXY100C2 MT (09:51)
[2020-11-30] MEDS: SODIUM CHLORIDE 0.9% 1,000 ML IV SCH (11:00)
[2020-11-30 12:59] LABS: PLATELET ESTIMATE INCREASED
[2020-11-30 13:07] LABS: *CREATININE RANDOM URINE 112.4 mg/dL (Not Estab.); MICROALBUMIN RANDOM URINE 62.9 ug/mL (Not Estab.)
== END 2020-11-30 18:08 | disposition home or self-care (01) | DRG 871 ==
LOC: ER 16:45 → 6WST 19:33 → ENRESERV 23:31 → MICUNO 11-28 03:07 → MICUSO 11-28 06:50 → 3WST 11-28 19:25
PROVIDERS: ADMIT Internal Medicine; ATTEND Internal Medicine
DX: A41.9 Sepsis, unspecified organism (principal); I63.9 Cerebral infarction, unspecified; G92 Toxic encephalopathy; J69.0 Pneumonitis due to inhalation of food and vomit; J96.01 Acute respiratory failure with hypoxia; I69.351 Hemiplegia and hemiparesis following cerebral infarction affecting right dominant side; E87.1 Hypo-osmolality and hyponatremia; N17.9 Acute kidney failure, unspecified; N39.0 Urinary tract infection, site not specified; L03.115 Cellulitis of right lower limb; D50.9 Iron deficiency anemia, unspecified; E11.51 Type 2 diabetes mellitus with diabetic peripheral angiopathy without gangrene; E11.65 Type 2 diabetes mellitus with hyperglycemia; E78.5 Hyperlipidemia, unspecified; E87.6 Hypokalemia; I10 Essential (primary) hypertension; I25.10 Atherosclerotic heart disease of native coronary artery without angina pectoris; R65.20 Severe sepsis without septic shock; Z93.1 Gastrostomy status; Z95.1 Presence of aortocoronary bypass graft; Z89.611 Acquired absence of right leg above knee; B96.20 Unspecified Escherichia coli [E. coli] as the cause of diseases classified elsewhere; E78.00 Pure hypercholesterolemia, unspecified; F01.50 Vascular dementia, unspecified severity, without behavioral disturbance, psychotic disturbance, mood disturbance, and anxiety; I69.311 Memory deficit following cerebral infarction; J44.9 Chronic obstructive pulmonary disease, unspecified; R13.10 Dysphagia, unspecified; Z79.899 Other long term (current) drug therapy; Z82.49 Family history of ischemic heart disease and other diseases of the circulatory system; Z83.3 Family history of diabetes mellitus; Z87.891 Personal history of nicotine dependence; Z89.511 Acquired absence of right leg below knee
CPT/HCPCS: 36415; 36600; 70551; 71045; 73700; 76770; 80048; 80053; 80061; 80305; 80320; 81003; 82043; 82375; 82550; 82553; 82570; 82805; 82962; 83036; 83605; 83735; 83880; 83935; 84100; 84134; 84145; 84443; 84481; 84484; 85025; 87077; 87186; 92610; 93005; 94640; 97163; 97166; 99285; J0692; J0696; J1644; J1815; J2020; J3370; J7030; J7060; Q9967; A4315; G0480

== ENCOUNTER 2020-12-22 09:48 | Emergency (ER) | payer MEDICARE, MEDICAID ==
[~2020-12-22] VITALS: Ht 182.9 cm; Wt 89.0 kg
[~2020-12-22 09:48] MED LIST changes: +AMOX1TAB16 PO; +DOXY100C2 MT; +NITR100C MT
[2020-12-22 11:12] LABS: EOSINOPHILS % 6.1 % (0.0-5.0); HEMATOCRIT. 30.2 % (42.0-52.0); HEMOGLOBIN. 10.3 g/dL (14.0-18.0); LYMPHOCYTES % 16.2 % (20.0-50.0); MEAN CORPUSCULAR HEMOGLOBIN 22.9 pg (28.0-32.0); MEAN CORPUSCULAR VOLUME 66.8 fL (80.0-94.0); MEAN PLATELET VOLUME 6.9 fl (7.4-10.4); MONOCYTES % 12.7 % (2.0-8.0); PLATELET 475 x1000/uL (130-400); RED BLOOD CELL COUNT 4.52 mill/uL (4.7-6.1); RED CELL DISTRIBUTION WIDTH 17.8 % (11.6-14.6)
[2020-12-22 11:17] LABS: CHLORIDE 93 mEq/L (98-107)
[2020-12-22 11:19] LABS: PROTHROMBIN TIME 10.8 sec (9.6-11.0)
[2020-12-22 11:42] LABS: PLATELET ESTIMATE INCREASED
[2020-12-22] MEDS ORDERED: SODIUM CHLORIDE 0.9% 1,000 ML IV ONE (12:30)
[2020-12-22] MEDS ORDERED: SILVER SULFADIAZINE 1% CREAM 25GM TOP ONE (12:30)
[2020-12-22] MEDS ORDERED: SILV20CR13 TP (12:33)
[2020-12-22] MEDS ORDERED: ACET-2708 MT (12:33)
[2020-12-22] MEDS ORDERED: HYDROCODONE/ACETAMINOPHEN 5/325MG TABLET PO ONE (12:45)
[2020-12-22 14:33] VITALS: BP 126/75
== END 2020-12-22 14:38 | disposition home or self-care (01) ==
LOC: ER 09:48
DX: Z48.01 Encounter for change or removal of surgical wound dressing (principal); Z89.611 Acquired absence of right leg above knee; D64.9 Anemia, unspecified; E11.9 Type 2 diabetes mellitus without complications; I10 Essential (primary) hypertension; I25.2 Old myocardial infarction; Z86.73 Personal history of transient ischemic attack (TIA), and cerebral infarction without residual deficits; Z95.1 Presence of aortocoronary bypass graft; Z93.1 Gastrostomy status; Z79.82 Long term (current) use of aspirin
CPT/HCPCS: 36415; 71045; 73551; 80053; 83605; 84145; 84484; 85025; 85610; 86140; 87040; 93005; 96360; 99285; J7030